=== PATIENT | male | born 1990 | race African-American/Black ===

== ENCOUNTER 2021-01-02 00:45 | Emergency (ER) | payer SELFPAY ==
[~2021-01-02] VITALS: Ht 175.3 cm; Wt 92.3 kg
[2021-01-02] MEDS ORDERED: ALBUTEROL SULFATE 8GM INHALER. ONE (00:56)
[2021-01-02] MEDS ORDERED: DEXAMETHASONE 4 MG TABLET ONE (00:56)
[2021-01-02 00:58] VITALS: BP 117/79
--- NOTE | 2021-01-02 01:03 | PHYS DOC ---
Adult General Chief Complaint Chief Complaint: ASTHMA HPI HPI Patient is a 30-year-old male with a past medical history significant for asthma who presents to the emergency department with asthma exacerbation and need for medication refill. States he is here [place] from [place] and forgot to bring his asthma medications with him. States he uses albuterol inhaler at home with a spacer. States he began having some shortness of breath/wheeze earlier in the day. Denies any recent illnesses, fevers, chest pain, abdominal pain, nausea, vomiting. States he would also like a prescription for some albuterol because he had to be here for a few more weeks. Review of Systems Review of Systems Review of systems otherwise unremarkable except noted in HPI Current Medications Current Medications Current Medications Medications (Trade) Dose Ordered Sig/Mar Start Time Stop Time Status Last Admin Dose Admin Albuterol Sulfate (Ventolin Hfa Inhaler) 2 puff 1X ONCE 01/02/21 01:00 01/02/21 01:01 UNV Dexamethasone (Decadron) 10 mg 1X ONCE 01/02/21 01:00 01/02/21 01:01 UNV Allergies Allergies Allergies Coded Allergies Type Severity Reaction Last Updated Verified No Known Drug Allergies 01/02/21 No Physical Exam Physical Exam Constitutional: Well developed, well nourished, no acute distress, non-toxic appearance. [] HENT: Normocephalic, atraumatic, bilateral external ears normal, oropharynx moist, no oral exudates, nose normal. [] Eyes: conjunctiva normal, no discharge. [] Neck: Normal range of motion, no tenderness, supple, no stridor. [] Cardiovascular:Heart rate regular rhythm, no murmur [] Lungs & Thorax: Global, bilateral, mild end expiratory wheeze Skin: Warm, dry, no erythema, no rash. [] Neurologic: Alert and oriented X 3, Psychologic: Affect normal, judgement normal, mood normal. [] EKG EKG [] Radiology/Procedures Radiology/Procedures [] Heart Score C/O Chest Pain: No Risk Factors: Risk Factors: DM, Current or recent (<one month) smoker, HTN, HLP, family history of CAD, obesity. Risk Scores: Risk Factors: DM, Current or recent (<one month) smoker, HTN, HLP, family history of CAD, obesity. Course & Med Decision Making Course & Med Decision Making Patient is a 30-year-old male with asthma who presents for asthma exacerbation medication refill Vital signs not concerning. Physical exam noted above. Patient given dexamethasone and breathing treatment. Patient given albuterol inhaler and spacer to take home for tonight as pharmacies are closed. Given prescription for albuterol while he is here in [place]. Advised to follow-up with his primary care physician as soon as he can when he gets home and return to the ED with new or concerning symptoms. Patient grateful, verbalized understanding and agreed with plan of discharge. [] Dragon Disclaimer Dragon Disclaimer This electronic medical record was generated, in whole or in part, using a voice recognition dictation system. Departure Departure: Impression: Primary Impression: Medication refill Additional Impression: Asthma exacerbation Disposition: 01 HOME / SELF CARE / HOMELESS Condition: GOOD Referrals: PCP,NO (PCP) Patient Instructions: Asthma Attacks, Prevention, Asthma, Acute Bronchospasm Additional Instructions: Please read all the attached information carefully. Please use your albuterol inhaler as demonstrated, discussed and prescribed. Please follow-up with your primary care physician as soon as you get back home to your home state to update on your ED visit and set up a follow-up appointment. Please come back to the emergency department immediately with new or concerning symptoms as discussed. Problem Qualifiers GEOFFREY BASS MD Jan 02, 2021 01:03
[2021-01-02] MEDS ORDERED: ALBU2.5V8 IH (01:05)
[2021-01-02] MEDS ORDERED: DEXAMETHASONE 4 MG TABLET PO ONE (01:30)
[2021-01-02] MEDS ORDERED: ALBUTEROL SULFATE 8GM INHALER. INH ONE (01:30)
== END 2021-01-02 01:12 | disposition home or self-care (01) ==
LOC: ER 00:45
DX: J45.909 Unspecified asthma, uncomplicated (principal); Z76.0 Encounter for issue of repeat prescription
CPT/HCPCS: 94640; 99283; J8540; 94664